=== PATIENT | male | born 2000 | race Two or more races ===

== ENCOUNTER 2019-03-31 17:08 | Emergency (ER) | payer SELFPAY ==
[~2019-03-31] VITALS: Ht 170.2 cm; Wt 75.0 kg
[2019-03-31 18:08] VITALS: BP 134/60
--- NOTE | 2019-03-31 19:12 | PHYS DOC ---
Past Medical History Past Medical History: No Pertinent History (JOSE ROSE APRN) Past Surgical History: No Surgical History (JOSE ROSE APRN) Alcohol Use: None Drug Use: None (JOSE ROSE APRN) Attending Signature I have participated in the care of this patient and I have reviewed and agree with all pertinent clinical information above including history, exam, and recommendations. (MARIA G LOZANO MD) Adult General Chief Complaint Chief Complaint: SORE THROAT HPI HPI Patient is a 18 year old male who presents with fever, loss of appetite, body aches, sore throat, runny nose, cough that started yesterday. Patient has been able to drink water at home. Patient has been using Tylenol for fever control. Denies additional symptoms. Complete ROS were reviewed and found to be within normal limits, except as documented in the HPI (JOSE ROSE APRN) Allergies Allergies Allergies Coded Allergies Type Severity Reaction Last Updated Verified No Known Drug Allergies 11/09/13 No (MARIA G LOZANO MD) Physical Exam Physical Exam Constitutional: Well developed, well nourished, no acute distress, non-toxic appearance. [] HENT: Normocephalic, atraumatic, bilateral external ears normal, oropharynx moist, tonsils are 2/4 with no oral exudates, nose normal. [] Eyes: PERRLA, EOMI, conjunctiva normal, no discharge. [] Neck: Normal range of motion, no tenderness, supple, no stridor. [] Cardiovascular:Heart rate regular rhythm, no murmur [] Lungs & Thorax: Bilateral breath sounds clear to auscultation [] Abdomen: Bowel sounds normal, soft, no tenderness, no masses, no pulsatile masses. [] Skin: Warm, dry, no erythema, no rash. [] Back: No tenderness, no CVA tenderness. [] Extremities: No tenderness, no cyanosis, no clubbing, ROM intact, no edema. [] Neurologic: Alert and oriented X 3, normal motor function, normal sensory function, no focal deficits noted. [] Psychologic: Affect normal, judgement normal, mood normal. [] (JOSE ROSE APRN) Current Patient Data Vital Signs Vital Signs Date Time Temp Pulse Resp B/P (MAP) Pulse Ox O2 Delivery O2 Flow Rate FiO2 03/31/19 18:08 100.0 106 16 134/60 (84) 99 Room Air 100.0 (MARIA G LOZANO MD) EKG EKG [] (JOSE ROSE APRN) Radiology/Procedures Radiology/Procedures [] (JOSE ROSE APRN) Course & Med Decision Making Course & Med Decision Making Pertinent Labs and Imaging studies reviewed. (See chart for details) The patient appears to have the Flu clinically. Discussed with patient the importance of drinking plenty of fluids. I also discussed the importance of rest. It was discussed with the patient that she is contagious and to stay away from others until it has been a week since the start of her symptoms. Discussed with the patient that she can take Zyrtec per label instructions for runny nose. Also discussed the proper control of fever by rotating Tylenol and Ibuprofen at home. A medical screening exam was performed on this patient and the patient does not appear to be having a medical emergency. His symptoms are not of sufficient severity and within reasonable medical probability it is unlikely the absence of immediate medical attention would result in placing the health of the individual (or, with respect to a woman, the health of the woman or her unborn child) in serious jeopardy, serious impairment to bodily functions, or serious dysfunction of any bodily organ or part. If , the patient is not in labor (JOSE ROSE APRN) Dragon Disclaimer Dragon Disclaimer This electronic medical record was generated, in whole or in part, using a voice recognition dictation system. (JOSE ROSE APRN) Departure Departure Impression: Primary Impression: Viral syndrome Additional Impression: Encounter for medical screening examination Disposition: HOME, SELF-CARE Condition: STABLE Referrals: NO PCP (PCP) Patient Instructions: Medical Screening Exam Additional Instructions: Thank you for visiting [facility]. We appreciate you trusting us with your care. If any additional problems come up don't hesitate to return to visit us. Please follow up with your primary care provider so they can plan additional care if needed and know about the problem that you had. If symptoms worsen come back to the Emergency Department. Any concerning symptoms that start such as chest pain, shortness of air, weakness or numbness on one side of the body, running high fevers or any other concerning symptoms return to the ER. Problem Qualifiers JOSE ROSE APRN Mar 31, 2019 19:12 MARIA G LOZANO MD Apr 01, 2019 03:44
== END 2019-03-31 19:26 | disposition home or self-care (01) ==
LOC: ER 17:08
DX: B34.9 Viral infection, unspecified (principal); R05 Cough; R50.9 Fever, unspecified; R63.0 Anorexia; R09.89 Other specified symptoms and signs involving the circulatory and respiratory systems
CPT/HCPCS: 99281

== ENCOUNTER → 2019-10-29 | Outpatient (CLI) | payer OTHER | LOC: LAB 05:36 | DX: Z02.83 Encounter for blood-alcohol and blood-drug test (principal) | CPT/HCPCS: 36415 ==